=== PATIENT | female | born 1945 | race Caucasian/White ===

== ENCOUNTER 2018-03-27 20:14 | Emergency (ER) | payer OTHER ==
[2018-03-27] MEDS ORDERED: fentaNYL* 50 MCG/ML 2 ML VIAL (100 MCG VIAL) IV SLOW PU ONE (20:46)
[2018-03-27] MEDS ORDERED: Ondansetron ODT TAB* 4 MG SL ONE (20:46)
--- NOTE | 2018-03-27 21:03 | ED ---
Lower Extremity - HPI Summary HPI Summary: This is jennifer Chawla documenting for attending Osmany Juarez MD. This patient is a 72 year old F BIBA from [facility] to ED with a chief complaint of dislocation of L hip since 1500 today. Based on note from [place] , she presents with shortening and internal rotation of left lower extremity. The patient was sitting in her chair at work. When she tried standing up, she had excruciating pain. She reports that she got a hip replacement in 2017, done by Dr. Chris Camarillo. This is the first time she accrued this pain. She last ate at 1230. The patient rates the pain 9/10 in severity. Symptoms aggravated by movement. Symptoms alleviated by nothing. - History of Current Complaint Chief Complaint: EDExtremityLower Stated Complaint: HIP PAIN Time Seen by Provider: 03/27/18 20:22 Hx Obtained From: Patient, Medical Records Onset of Pain: Immediate Onset/Duration: Still Present Severity Initially: Severe Severity Currently: Severe Pain Intensity: 9 Pain Scale Used: 0-10 Numeric Timing: Constant, Lasting Hours Location: Is Discrete @ - L hip Associated Signs And Symptoms: Positive: Other - Based on note from [place], she presents with shortening and internal rotation of left lower extremity. Aggravating Factor(s): Movement Alleviating Factor(s): Nothing - Allergies/Home Medications Home Medications: Home Medications Aspirin TAB* [Aspirin 325 MG TAB*] 325 mg PO DAILY 03/27/18 [History Confirmed 03/27/18] Cholecalciferol TAB* [Vitamin D TAB*] 1,000 unit PO DAILY 03/27/18 [History Confirmed 03/27/18] Cyanocobalamin TAB* [Vitamin B12 TAB*] 1,000 mcg PO DAILY 03/27/18 [History Confirmed 03/27/18] Levothyroxine TAB* [Synthroid TAB*] 100 mcg PO DAILY 03/27/18 [History Confirmed 03/27/18] Losartan TAB* [Cozaar TAB*] 100 mg PO DAILY 03/27/18 [History Confirmed 03/27/18 ] Meloxicam(NF) [Mobic(NF)] 15 mg PO DAILY 03/27/18 [History Confirmed 03/27/18] Pravastatin (NF) [Pravachol (NF)] 80 mg PO DAILY 03/27/18 [History Confirmed ] PMH/Surg Hx/FS Hx/Imm Hx Endocrine/Hematology History: Denies: Hx Diabetes Cardiovascular History: Denies: Hx Coronary Artery Disease, Hx Hypertension - Surgical History Surgery Procedure, Year, and Place: hip replacement 2017 Infectious Disease History: No Infectious Disease History: Denies: Traveled Outside the [place] in Last 30 Days - Family History Known Family History: Negative: Cardiac Disease, Hypertension, Diabetes - Social History Alcohol Use: None Substance Use Type: Reports: None Smoking Status (MU): Never Smoked Tobacco Review of Systems Negative: Fever Positive: Other - Based on note from [place], she presents with shortening and internal rotation of left lower extremity. All Other Systems Reviewed And Are Negative: Yes Physical Exam - Summary Physical Exam Summary: VITAL SIGNS: Reviewed. GENERAL: Patient is a well-developed and nourished FEMALE who is lying comfortable in the stretcher. Patient is not in any acute respiratory distress. HEAD AND FACE: No signs of trauma. No ecchymosis, hematomas or skull depressions. No sinus tenderness. EYES: PERRLA, EOMI x 2, No injected conjunctiva, no nystagmus. EARS: Hearing grossly intact. Ear canals and tympanic membranes are within normal limits. MOUTH: Oropharynx within normal limits. NECK: Supple, trachea is midline, no adenopathy, no JVD, no carotid bruit, no c- spine tenderness, neck with full ROM. CHEST: Symmetric, no tenderness at palpation LUNGS: Clear to auscultation bilaterally. No wheezing or crackles. CVS: Regular rate and rhythm, S1 and S2 present, no murmurs or gallops appreciated. ABDOMEN: Soft, non-tender. No signs of distention. No rebound no guarding, and no masses palpated. Bowel sounds are normal. EXTREMITIES: no edema, no cyanosis or clubbing. L hip is short and internally rotated NEURO: Alert and oriented x 3. No acute neurological deficits. Speech is normal and follows commands. SKIN: Dry and warm Triage Information Reviewed: Yes Vital Signs On Initial Exam: Initial Vitals Temp Pulse Resp BP Pulse Ox 98 F 76 17 156/82 98 03/27/18 20:36 03/27/18 20:36 03/27/18 20:36 03/27/18 20:36 03/27/18 20:36 Vital Signs Reviewed: Yes Procedures - Procedure Summary Procedure Summary: Patient signed consent. Moderate sedation by anesthesiologist. Using captain alexsander technique, the left hip was reduced. Neurovascular exam was intact post reduction. XR post reduction showed good alignment and no fracture. Patient is pain free at this time. Patient was given knee immobilizer. Diagnostics - Vital Signs Vital Signs Temp Pulse Resp BP Pulse Ox 03/27/18 20:36 98 F 76 17 156/82 98 - Laboratory Lab Statement: Any lab studies that have been ordered have been reviewed, and results considered in the medical decision making process. - Radiology CXR Radiology Interpretation Completed By: ED Physician - No acute processes. Pending radiologist official interpretation. pelvis XR Radiology Interpretation Completed By: ED Physician - XR post reduction showed good alignment and no fracture. Pending radiologist official interpretation. Re-Evaluation - Re-Evaluation First Eval Re-Evaluation Time: 22:15 Comment: Discussed with patient the results and discussed discharge plan. Lower Extremity Course/Dx - Course Assessment/Plan: L hip dislocation was reduced with no complications. She was given a knee immobilizer and instructions to follow up with an orthopedist. - Diagnoses Differential Diagnosis/HQI/PQRI: Positive: Other - L hip dislocation Provider Diagnoses: Dislocation of left hip - Physician Notifications Discussed Care Of Patient With: Terrell Pacheco Time Discussed With Above Provider: 20:49 Instructed by Provider To: Other - Consulted Dr. Pacheco who will come see the patient in the ED. Discharge - Sign-Out/Discharge Documenting (check all that apply): Patient Departure - Discharge Plan Condition: Stable Disposition: HOME Patient Education Materials: Hip Dislocation (ED), Knee Immobilizer (ED) Referrals: Camilla Gomez MD [Medical Doctor] - (Follow up with Dr. Gomez (orthopedist) in 1-3 days.) Additional Instructions: Keep the knee immobilizer on while you are awake. Follow up with Dr. Gomez ( orthopedist).
[2018-03-27] MEDS ORDERED: Lidocaine 1% INJ* 10 MG/ML 30 ML SDV ONE (21:42)
[2018-03-27] MEDS ORDERED: EPHEDrine (Pressors)* 50 MG/ML VIAL ONE (21:42)
[2018-03-27] MEDS ORDERED: Propofol* 0 ML ONE (21:43)
[2018-03-27] MEDS ORDERED: Atropine SYRINGE* 0.1 MG/ML 10 ML SYRINGE (1 MG) ONE (21:43)
[2018-03-27] MEDS ORDERED: Propofol* 500 MG/50 ML BTL ONE (21:46)
[2018-03-27] MEDS ORDERED: Propofol* 100 ML IV SCH (22:00)
[2018-03-28 03:52] VITALS: BP 141/75
--- NOTE | 2018-03-28 07:50 | RAD ---
Indication: Post reduction prosthetic LEFT hip dislocation. Comparison: Prereduction exam of the same date. Technique: Portable AP pelvis 2203 hours Report: Restored normal alignment of the prosthetic LEFT hip in the AP projection. No periprosthetic fracture evident within the [id number]. The distal margin of the femoral stem is not included in the [id number] limiting assessment. Unremarkable soft tissue contours. RIGHT lower quadrant surgical clips and vaginal pessary noted. IMPRESSION: #.Restored normal alignment of the prosthetic LEFT hip in the AP projection. R0
== END 2018-03-28 01:00 | disposition home or self-care (01) ==
LOC: ED 20:14
DX: T84.021A Dislocation of internal left hip prosthesis, initial encounter (principal); Y83.1 Surgical operation with implant of artificial internal device as the cause of abnormal reaction of the patient, or of later complication, without mention of misadventure at the time of the procedure; Y92.9 Unspecified place or not applicable; Z79.82 Long term (current) use of aspirin
CPT/HCPCS: 27265; 72170; 96374; 99284; A9270-GY; J0461; J2704; J3010